=== PATIENT | male | born 1980 | race Caucasian/White ===

== ENCOUNTER 2019-02-04 16:39 | Emergency (ER) | payer SELFPAY ==
[~2019-02-04] VITALS: Ht 180.3 cm; Wt 95.0 kg
[2019-02-04 16:42] VITALS: BP 167/88
== END 2019-02-04 20:35 | disposition left against medical advice (07) ==
LOC: ER 16:39
DX: Z53.21 Procedure and treatment not carried out due to patient leaving prior to being seen by health care provider (principal)